=== PATIENT | female | born 1980 | race Caucasian/White ===

== ENCOUNTER 2023-12-30 11:37 | Emergency (ER) | payer OTHER ==
[~2023-12-30] VITALS: Ht 157.5 cm; Wt 59.1 kg
[2023-12-30 11:53] VITALS: TEMP 97.9
[2023-12-30] MEDS ORDERED: IBUP-1492 PO (15:30)
[2023-12-30 15:36] VITALS: BP 110/67; PULSE 64; RESP 16
[2023-12-30] MEDS: PERTUSS(ACELL),DIPH,TET VAC/PF 0.5 ML SYRINGE IM. ONE (15:47)
== END 2023-12-30 15:45 | disposition home or self-care (01) ==
LOC: EMS 11:38
DX: S61.211A Laceration without foreign body of left index finger without damage to nail, initial encounter (principal); S61.213A Laceration without foreign body of left middle finger without damage to nail, initial encounter; W31.89XA Contact with other specified machinery, initial encounter; Y93.89 Activity, other specified; Y92.89 Other specified places as the place of occurrence of the external cause; Y99.0 Civilian activity done for income or pay
CPT/HCPCS: 12001; 99283

== ENCOUNTER 2024-10-05 17:37 | Emergency (ER) | payer OTHER ==
[~2024-10-05] VITALS: Ht 162.6 cm; Wt 63.6 kg
[~2024-10-05 17:37] MED LIST: IBUP-1492 PO
[2024-10-05 17:56] VITALS: TEMP 98.5
[2024-10-05 20:00] VITALS: BP 120/75; PULSE 77; RESP 16; O2SAT 100
== END 2024-10-05 20:12 | disposition home or self-care (01) ==
LOC: EMS 17:37
DX: M25.562 Pain in left knee (principal)
CPT/HCPCS: 29505; 29530; 99283